=== PATIENT | male | born 1960 | race Caucasian/White ===

== ENCOUNTER 2018-07-17 05:29 | Outpatient (CLI) | payer BC | END 2018-07-17 05:30 | disposition home or self-care (01) | LOC: LABBT 05:29 | PROVIDERS: ATTEND Neurological Surgery | DX: Z01.818 Encounter for other preprocedural examination (principal); M54.16 Radiculopathy, lumbar region | CPT/HCPCS: 93005; 93010 ==

== ENCOUNTER 2018-07-17 09:14 | Emergency (ER) | payer BC ==
[2018-07-17] MEDS ORDERED: Metoprolol Tartrate 5 MG/5 ML VIAL ONE (09:40)
[2018-07-17 09:45] LABS: #Eosinphils 0.5 thou/uL (0.0-0.7); #Lymphocytes 2.5 thou/uL (1.20-3.40); #Monocytes 0.6 thou/uL (0.11-0.59); #Neutrophils 3.2 thou/uL (1.40-6.50); %Basophils 0.7 % (0.0-1.0); %Eosinophils 7.3 % (0.0-10.0); %Lymphocytes 36.5 % (21.0-51.0); %Monocytes 8.4 % (0.0-10.0); %Neutrophils 47.1 % (42.0-75.0); Hemoglobin 15.4 g/dL (14.0-18.0); Mean Corpuscular HGB CONC 32.4 g/dL (32.0-36.0); Mean Corpuscular Hemoglobin 27.6 pg (27.0-31.0); Mean Corpuscular Volume 84.9 fL (78.0-98.0); Mean Platelet Volume 7.9 fL (7.4-10.4); Platelet Count 217 thou/uL (130-400); RBC Distribution Width 12.3 % (11.5-14.5); Red Blood Cell (RBC) Count 5.59 mill/uL (4.70-6.10); White Blood Cell (WBC) Count 6.9 thou/uL (4.8-10.8)
--- NOTE | 2018-07-17 10:08 | RAD ---
Chest one view HISTORY: Abnormal EKG. COMPARISON: 11/27/2009. FINDINGS: Cardiac silhouette is magnified by projection. Pulmonary vasculature is upper limits of nor mal. Mediastinum is midline. No lobar consolidation or evidence of pneumothorax. monitor worker leads overlie the chest. IMPRESSION: No active cardiopulmonary abnormalities are demonstrated..
[2018-07-17 11:49] LABS: ALT (SGPT) 24 U/L (8-55); AST (SGOT) 17 U/L (5-34); Albumin 4.6 g/dL (3.5-5.0); Alkaline Phosphatase 77 U/L (40-150); Anion Gap 13 mmol/L (10-20); BUN (Urea Nitrogen) 20 mg/dL (8.4-25.7); Bilirubin, Total 0.5 mg/dL (0.2-1.2); CK (CPK) 178 U/L (30-200); Calc. Creatinine Clearance 0 mL/min (70-130); Calcium 9.5 mg/dL (7.8-10.44); Carbon Dioxide 26 mmol/L (22-29); Chloride 103 mmol/L (98-107); Estimated GFR-MDRD 68; Globulin 2.6 g/dL (2.4-3.5); Glucose 111 mg/dL (70-105); Lipase 28 U/L (8-78); Potassium 4.2 mmol/L (3.5-5.1); Protein, Total 7.2 g/dL (6.0-8.3); Sodium 138 mmol/L (136-145)
== END 2018-07-17 13:20 | disposition home or self-care (01) ==
LOC: ERS 09:14
DX: I48.92 Unspecified atrial flutter (principal); I10 Essential (primary) hypertension
CPT/HCPCS: 71045; 80053; 82550; 83690; 84484; 85025; 93005; 93010; 96361; 96374

== ENCOUNTER 2018-07-25 06:01 | Outpatient (CLI) | payer BC ==
[2018-07-25 11:55] LABS: Hemoglobin 15.6 g/dL (14.0-18.0); INR-International Normal Ratio 2.1; Mean Corpuscular HGB CONC 33.8 g/dL (32.0-36.0); Mean Corpuscular Hemoglobin 28.5 pg (27.0-31.0); Mean Corpuscular Volume 84.2 fL (78.0-98.0); Mean Platelet Volume 7.5 fL (7.4-10.4); PTT 40.6 SEC (22.9-36.1); Platelet Count 265 thou/uL (130-400); Prothrombin Time 23.4 SEC (12.0-14.7); RBC Distribution Width 12.2 % (11.5-14.5); White Blood Cell (WBC) Count 9.1 thou/uL (4.8-10.8)
[2018-07-25 12:32] LABS: Anion Gap 16 mmol/L (10-20); BUN (Urea Nitrogen) 19 mg/dL (8.4-25.7); Calc. Creatinine Clearance 0 mL/min (70-130); Calcium 9.7 mg/dL (7.8-10.44); Carbon Dioxide 26 mmol/L (22-29); Chloride 102 mmol/L (98-107); Estimated GFR-MDRD 73; Glucose 113 mg/dL (70-105); Potassium 4.1 mmol/L (3.5-5.1); Sodium 140 mmol/L (136-145)
--- NOTE | 2018-07-25 16:59 | EKG ---
Test Reason : Blood Pressure : / mmHG Vent. Rate : 098 BPM Atrial Rate : 256 BPM P-R Int : 000 ms QRS Dur : 108 ms QT Int : 424 ms P-R-T Axes : -50 -38 019 degrees QTc Int : 541 ms Atrial flutter with variable A-V block Left axis deviation Incomplete right bundle branch block Lateral infarct , age undetermined cannot R/O some acute inferior changes Prolonged QT Abnormal ECG Confirmed by DR. Enio SIFUENTES ([id number]) on 07/25/2018 4:58:47 PM Referred By: IRENE Confirmed By:DR. Enio SIFUENTES
== END 2018-07-25 06:02 | disposition home or self-care (01) ==
LOC: LABBT 06:01
PROVIDERS: ATTEND Internal Medicine Cardiovascular Disease
DX: Z01.818 Encounter for other preprocedural examination (principal); I48.92 Unspecified atrial flutter
CPT/HCPCS: 80048; 85027; 85610; 85730; 93005; 93010

== ENCOUNTER 2018-07-26 08:09 | Day surgery (SDC) | payer BC ==
[2018-07-25 11:44] VITALS: BMI 38.1
[2018-07-26] MEDS ORDERED: PROPOFOL 0 ML ONE (09:13)
[2018-07-26] MEDS ORDERED: Propofol 1,000 MG/100 ML VIAL IV ONE (10:04)
[2018-07-26] MEDS ORDERED: Heparin 10,000 UNITS/1 ML VIAL ONE (10:04)
[2018-07-26] MEDS ORDERED: PROPOFOL 40 ML ONE (11:04)
[2018-07-26] MEDS ORDERED: Lidocaine 1% PF 5 ML VIAL ONE (11:04)
[2018-07-26] MEDS ORDERED: Fentanyl 100 MCG/2 ML VIAL ONE (11:28)
[2018-07-26] MEDS ORDERED: Midazolam HCl 2 mg/2 ml Vial ONE (11:28)
[2018-07-26] MEDS ORDERED: DOPamine 400 MG/D5W 250 ML 250 ML ONE (12:30)
[2018-07-26] MEDS ORDERED: PROPOFOL 200 MG/20 ML VIAL ONE (13:36)
--- NOTE | 2018-07-26 15:38 | OP ---
DATE OF PROCEDURE: 07/26/2018 PROCEDURES PERFORMED: Electrophysiology study and radiofrequency ablation. REASON FOR PROCEDURE: Mr. Todd is a 57-year-old man, who was found to be sustained atrial flutter, increasing fatigue and tiredness, who underwent a NAT prior to the procedure demonstrating no intracardiac clots. Left atrial size is 6.2 cm. Normal LV function. He has been anticoagulated with Xarelto, which was stopped the day before. He is here for EP study and ablation of his typical appearing atrial flutter. DESCRIPTION OF PROCEDURE: The patient received the propofol by Anesthesia specialist. After adequate level of sedation achieved, the left and right femoral vein was prepped, draped and anesthetized using subcutaneous lidocaine in the right side under ultrasound guidance with a multipurpose needle. Two 8-Hungarian short sheaths were introduced. Through the 8-Hungarian short sheath, a ThermoCool SFST catheter was advanced to the right atrium. A 3D map of the right atrium, the His bundle and the coronary sinus was obtained. A decapolar catheter was advanced to the coronary sinus. Following findings were noted. Baseline rhythm was atrial flutter. RR interval was 718. The QRS 74, QT 354, and HV interval 52 milliseconds. Atrial flutter cycle length was 270 milliseconds. It appeared to be typical. Overdrive pacing at the isthmus entering the tachycardia and the post pacing interval equaling to the tachycardia cycle length about 270 milliseconds. At this point, the cavotricuspid isthmus ablation was performed, delivering a total of 8 lesions at 8 minutes and 17 seconds at 40 armijo. During the ablation, the atrial flutter terminated. Re-mapping of the cavotricuspid isthmus was performed during proximal CS pacing and we were able to achieve over 200 milliseconds transisthmus time, which was longest adjacent by the ablation line suggesting of cavotricuspid isthmus block at least unilaterally. Burst atrial pacing did not reinduce the atrial flutter. Following findings were noted in sinus rhythm. Sinus node recovery time was 1359, corrected 561. The AV Wenckebach cycle length was 380. AV brett ERP was 600/300 milliseconds. No evidence of dual AV brett physiology was seen. Again, burst atrial pacing was repeated on dopamine and also the patency of the ablation line was also rechecked. In the end of the case, the cardiac silhouette did not change significantly. Sheaths were pulled in the metallurgy laboratory technician and closure was achieved with Vascade closure. CONCLUSION: 1. Typical isthmus dependent atrial flutter. 2. Successful cavotricuspid isthmus ablation. 3. Successful Vascade closure. 4. Abnormal sinus brett function. 5. Normal AV brett function without evidence of accessory pathway. Normal His-Purkinje function also seen. PLAN: Continue Xarelto short-term and monitor for recurrent arrhythmias. Routine followup in the office. Job ID: [id number]
--- NOTE | 2018-07-26 17:43 | ECHO ---
DATE OF SERVICE: 07/26/18 REFERRING PHYSICIAN: Dr. Micki Riley REASON FOR PROCEDURE: The patient is a 57-year-old male with prior history of hypertension who has had been found to have a typical atrial flutter while undergoing workup for a slipped disc for possible back surgery. He has s ignificant tiredness. Here for NAT prior to planned ablation procedure. PROCEDURE: The patient received Propofol by Anesthesia specialist. After adequate level of sedation achieved, a standard transesophageal echocardiogram probe was passed into the esophagus without diff iculty. Patient tolerated the procedure well, no complications noted. RESULTS: Left atrium is moderately enlarged in size about 6.2 cm in horizontal diameter which may be appropria te for this body habitus. The right atrium is enlarged. The interatrial septum is free of defect. Tw o left sided pulmonary veins and three right sided pulmonary veins were visualized. The mitral valve has mild regurgitation. The aortic valve has trace regurgitation. Tricuspid valve has mild regurgit ation. The pulmonary valve has trace regurgitation. No valvular stenosis identified. Left ventricula r systolic function is preserved. Ventricular chamber sizes are normal. No ventricular septal defects or atrial septal defects observed. Pericardial space is free of effusion. The visualized portion of ascending and descending aorta without aneurysm, dissection or significant atheroma. Left atrial appendage is clearly visualized and contains no clots. Left atrial appendage velocities u p to 55 cm/s which is adequate. CONCLUSION: 1. No intracardiac clots. 2. Normal left ventricular systolic function seen. 3. Moderate left atrial enlargement. 4. Mild mitral and tricuspid regurgitation. No valvular stenosis identified. PLAN: Proceed with ablation procedure.
== END 2018-07-26 17:10 | disposition home or self-care (01) ==
LOC: CCL 08:09
PROVIDERS: ATTEND Internal Medicine Cardiovascular Disease
PROC: 02583ZZ Destruction of Conduction Mechanism, Percutaneous Approach (ICD-10-PCS; principal; 2018-07-26)
DX: I48.3 Typical atrial flutter (principal); I10 Essential (primary) hypertension; I08.1 Rheumatic disorders of both mitral and tricuspid valves; Z79.899 Other long term (current) drug therapy
CPT/HCPCS: 76942; 93005; 93312; 93613; 93623; 93653; C1732; C1769; J1265; J1644; J2001; J2250; J2704; J3010

== ENCOUNTER 2018-10-16 07:41 | Day surgery (SDC) | payer BC ==
[2018-10-13 12:36] VITALS: BMI 39.5
--- NOTE | 2018-10-15 22:16 | HP ---
HISTORY OF PRESENT ILLNESS: Mr. Todd is a pleasant 57-year-old man, here today for evaluation of lower back pain and left-sided hip and anterior thigh and garnica pain that began after moving a large load at work back in May. He has never had this type of pain in the past. The pain is worsened with prolonged driving and sitting. MRI from the [facility] reveals moderate to severe foraminal stenosis at L3-L4 and L4-L5 . He has not treated this with using other than [id number] medications. He denies weakness, but admits he walks and moves a lot more slowly than previous to this pain. PAST MEDICAL HISTORY: Significant for hypercholesterolemia and hypertension. PAST SURGICAL HISTORY: Right knee, unspecified. CURRENT MEDICATIONS: Amitriptyline. ALLERGIES: NO KNOWN DRUG ALLERGIES. PHYSICAL EXAMINATION: GENERAL: The patient is alert, oriented x3. MUSCULOSKELETAL: Gait is slowed and antalgic. Lower extremity motor exam is normal. ASSESSMENT: Lumbar radiculopathy. PLAN: Dr. Genao met with the patient, reviewed imaging, advocated for left L3-L5 decompression. He explained to the patient the risks, benefits, and alternatives to the procedure. The patient expressed understanding and elected to move forward with surgery as discussed. I do believe the patient is mentally competent and capable of making medical decisions for himself. We will move forward with surgery as planned. Job ID: [id number]
[2018-10-16] MEDS ORDERED: ceFAZolin Sodium (SDC) 2 GM/100 ML BAG ONE ×2 (09:19→14:11)
[2018-10-16 09:30] LABS: #Eosinphils 0.5 thou/uL (0.0-0.7); #Monocytes 0.6 thou/uL (0.11-0.59); #Neutrophils 3.5 thou/uL (1.40-6.50); %Basophils 0.5 % (0.0-1.0); %Eosinophils 7.2 % (0.0-10.0); %Lymphocytes 30.1 % (21.0-51.0); %Monocytes 9.4 % (0.0-10.0); %Neutrophils 52.8 % (42.0-75.0); Hemoglobin 14.6 g/dL (14.0-18.0); Mean Corpuscular HGB CONC 32.7 g/dL (32.0-36.0); Mean Corpuscular Hemoglobin 28.3 pg (27.0-31.0); Mean Corpuscular Volume 86.6 fL (78.0-98.0); Platelet Count 216 thou/uL (130-400); RBC Distribution Width 13.3 % (11.5-14.5); Red Blood Cell (RBC) Count 5.18 mill/uL (4.70-6.10); White Blood Cell (WBC) Count 6.6 thou/uL (4.8-10.8)
[2018-10-16 09:37] LABS: Anion Gap 10 mmol/L (10-20); BUN (Urea Nitrogen) 22 mg/dL (8.4-25.7); Calc. Creatinine Clearance 180 mL/min (70-130); Calcium 9.9 mg/dL (7.8-10.44); Carbon Dioxide 32 mmol/L (22-29); Chloride 108 mmol/L (98-107); Estimated GFR-MDRD 72; Glucose 118 mg/dL (70-105); Potassium 4.1 mmol/L (3.5-5.1); Sodium 146 mmol/L (136-145)
[2018-10-16] MEDS ORDERED: Bupivacaine HCl 0.5%/Epinephrine 1:200,000/PF 30 ml Vial ONE (10:19)
[2018-10-16] MEDS ORDERED: Thrombin 5000 UNITS/5 ML VIAL ONE (10:19)
[2018-10-16] MEDS ORDERED: Fentanyl 250 MCG/5 ML VIAL ONE (10:24)
[2018-10-16] MEDS ORDERED: Midazolam HCl 2 mg/2 ml Vial ONE (10:24)
[2018-10-16] MEDS ORDERED: Tamsulosin HCl 0.4 MG CAP ONE (12:29)
[2018-10-16] MEDS ORDERED: Fentanyl 100 MCG/2 ML VIAL ONE (12:35)
[2018-10-16] MEDS ORDERED: Acetaminophen/Codeine 30-300mg Tablet ONE (14:14)
--- NOTE | 2018-10-16 16:07 | OP ---
DATE OF PROCEDURE: 10/16/2018 [employer] FOOTBALLER: Alexi Ponce PA-C. INDICATION: Pain. DIAGNOSIS: Lumbar radiculopathy. PROCEDURES PERFORMED: Left L3-L4, L4-L5 lumbar decompression, hemilaminectomy, medial facetectomy, and foraminotomy. ANESTHESIA: General. DESCRIPTION OF PROCEDURE: The patient was brought into the operating room and placed under general anesthesia. He was flipped from the supine to prone position on operating room table. A linear incision was planned from L3 to L5. The lower aspect of the incision encompassed incision from his prior operation. After prepping and draping and after an appropriate pause, the incision was created. The soft tissues were swept left of midline. A self-retaining retractor was placed. A C-arm image was then obtained to confirm the appropriate level. After confirming the appropriate level, high-speed cutting drill bit was used to perform a laminectomy completely along L4, the inferior aspect of L3, and the superior aspect of L5 was already missing from a prior operation. The laminectomy was extended laterally to encompass the medial aspect of the facet joints at both levels. The descending L4 and exiting L4 nerve root in particular were identified and decompressed throughout its course as most the patient's if not all of the symptoms were consistent with an L4 radiculopathy. After decompressing the segments, the wound was irrigated. Hemostasis was maintained throughout. The wound was then closed in anatomic layers and a pressure dressing was applied. There were no known procedural complications. Job ID: [id number]
== END 2018-10-16 14:56 | disposition home or self-care (01) ==
LOC: SDC 07:41
PROVIDERS: ATTEND Neurological Surgery
PROC: 01NB0ZZ Release Lumbar Nerve, Open Approach (ICD-10-PCS; principal; 2018-10-16)
DX: M54.16 Radiculopathy, lumbar region (principal); I10 Essential (primary) hypertension; E78.00 Pure hypercholesterolemia, unspecified; Z79.899 Other long term (current) drug therapy; R26.89 Other abnormalities of gait and mobility
CPT/HCPCS: 36415; 76000; 80048; 85025; J0670; J0690; J2250; J3010

== ENCOUNTER 2019-01-11 06:43 | Outpatient (CLI) | payer BC ==
[2019-01-11 13:39] LABS: #Basophils 0.1 thou/uL (0.0-0.2); #Eosinphils 0.4 thou/uL (0.0-0.7); #Lymphocytes 1.8 thou/uL (1.20-3.40); #Monocytes 0.6 thou/uL (0.11-0.59); #Neutrophils 4.6 thou/uL (1.40-6.50); %Basophils 0.8 % (0.0-1.0); %Eosinophils 5.2 % (0.0-10.0); %Lymphocytes 24.7 % (21.0-51.0); %Monocytes 7.4 % (0.0-10.0); %Neutrophils 61.9 % (42.0-75.0); Hemoglobin 15.4 g/dL (14.0-18.0); Mean Corpuscular HGB CONC 34.6 g/dL (32.0-36.0); Mean Corpuscular Hemoglobin 29.5 pg (27.0-31.0); Mean Corpuscular Volume 85.1 fL (78.0-98.0); Mean Platelet Volume 7.2 fL (7.4-10.4); Platelet Count 235 thou/uL (130-400); RBC Distribution Width 12.2 % (11.5-14.5); Red Blood Cell (RBC) Count 5.22 mill/uL (4.70-6.10); White Blood Cell (WBC) Count 7.4 thou/uL (4.8-10.8)
[2019-01-11 13:48] LABS: Bacteria/HPF None Seen HPF (None Seen); Bilirubin Negative (Negative); Blood, Urine Negative (Negative); Clarity Clear (Clear); Glucose, Urine (Dipstick) Normal (Negative); Leukocyte Negative Leu/uL (Negative); Nitrite Negative (Negative); Protein, Urine (Dipstick) Negative (Neg-Trace); RBC/HPF 0-3 HPF (0-3); Squamous Epithelial None Seen HPF (0-3); Urobilinogen Normal mg/dL (Less than 2); WBC/HPF 0-3 HPF (0-3)
[2019-01-11 13:52] LABS: INR-International Normal Ratio 1.1; Prothrombin Time 13.7 SEC (12.0-14.7)
[2019-01-11 13:58] LABS: Anion Gap 14 mmol/L (10-20); BUN (Urea Nitrogen) 16 mg/dL (8.4-25.7); Calc. Creatinine Clearance 0 mL/min (70-130); Calcium 9.4 mg/dL (7.8-10.44); Carbon Dioxide 25 mmol/L (22-29); Chloride 103 mmol/L (98-107); Estimated GFR-MDRD 69; Glucose 105 mg/dL (70-105); Potassium 3.4 mmol/L (3.5-5.1); Sodium 139 mmol/L (136-145)
--- NOTE | 2019-01-11 16:55 | EKG ---
Test Reason : Blood Pressure : / mmHG Vent. Rate : 075 BPM Atrial Rate : 075 BPM P-R Int : 204 ms QRS Dur : 106 ms QT Int : 416 ms P-R-T Axes : 082 036 058 degrees QTc Int : 464 ms Sinus rhythm with Premature atrial complexes Incomplete right bundle branch block Possible Inferior infarct Abnormal ECG Confirmed by RORO SAEED ([id number]) on 01/11/2019 4:55:04 PM Referred By: IERO Confirmed By:RORO SAEED
== END 2019-01-11 06:44 | disposition home or self-care (01) ==
LOC: LABBT 06:43
PROVIDERS: ATTEND Orthopaedic Surgery
DX: Z01.818 Encounter for other preprocedural examination (principal); M17.12 Unilateral primary osteoarthritis, left knee
CPT/HCPCS: 80048; 81001; 85025; 85610; 87081; 93005; 93010

== ENCOUNTER 2019-01-11 12:30 | Inpatient (IN) | payer BC ==
[2019-01-22] MEDS ORDERED: Tranexamic Acid 1,000 MG/10 ML VIAL ONE ×2 (06:00→09:32)
[2019-01-22] MEDS ORDERED: Sodium Chloride 0.9% 100 ML ONE (06:00)
[2019-01-22] MEDS ORDERED: Fentanyl 100 MCG/2 ML VIAL ONE ×4 (06:36→10:33)
[2019-01-22] MEDS ORDERED: Midazolam HCl 2 mg/2 ml Vial ONE (06:36)
[2019-01-22] MEDS ORDERED: Bupivacaine PF 0.5% 30 ML VIAL ONE (06:46)
[2019-01-22] MEDS ORDERED: Ropivacaine HCl/PF 250 ML in Premix Bag 1 BAG NERVE BLCK SCH (07:19)
[2019-01-22] MEDS ORDERED: traMADol HCl 50 MG TAB PO PRN ×3 (07:19)
[2019-01-22] MEDS ORDERED: diphenhydrAMINE 25 MG CAP PO PRN (07:19)
[2019-01-22] MEDS ORDERED: Zolpidem Tartrate 5 MG TAB PO PRN ×2 (07:19)
[2019-01-22] MEDS ORDERED: Ondansetron PF 4 MG/2 ML Vial IVP PRN ×2 (07:19)
[2019-01-22] MEDS ORDERED: HYDROcodone/Acetaminophen 10/325 mg Tablet PO PRN ×4 (07:19)
[2019-01-22] MEDS ORDERED: Promethazine HCl 25 MG/ML VIAL IM PRN ×3 (07:19→08:08)
[2019-01-22] MEDS ORDERED: Fentanyl 100 MCG/2 ML VIAL SLOW IVP PRN (07:19)
[2019-01-22] MEDS ORDERED: Fentanyl 100 MCG/2 ML VIAL IV PRN (07:20)
[2019-01-22] MEDS ORDERED: Tranexamic Acid 1,000 MG in Sodium Chloride 0.9% 100 ML IVPB SCH (07:30)
[2019-01-22] MEDS ORDERED: Ondansetron HCl/PF 4 MG/2 ML Vial IVP PRN (08:08)
[2019-01-22] MEDS ORDERED: Promethazine HCl 25 MG/ML VIAL SLOW IVP PRN (08:08)
[2019-01-22] MEDS ORDERED: Aspirin 81 mg Enteric Coated Tablet PO SCH (09:00)
[2019-01-22] MEDS ORDERED: PROPOFOL 200 MG/20 ML VIAL ONE (10:27)
[2019-01-22] MEDS ORDERED: Ondansetron PF 4 MG/2 ML Vial ONE (10:27)
[2019-01-22] MEDS ORDERED: Lidocaine 1% PF 5 ML VIAL ONE (10:27)
[2019-01-22] MEDS ORDERED: Ketorolac Tromethamine 30 MG/ML VIAL ONE (10:40)
[2019-01-22] MEDS ORDERED: Acetaminophen 1,000 MG in Premix Bag 1 BAG IVPB SCH (10:45)
[2019-01-22] MEDS ORDERED: Ketorolac Tromethamine 30 MG/ML VIAL IVP SCH ×2 (10:45→14:00)
[2019-01-22 11:55] VITALS: BMI 41.6
[2019-01-22] MEDS: Aspirin 81 mg Enteric Coated Tablet PO SCH ×2 (12:00→21:05)
[2019-01-22] MEDS: Sodium Chloride 0.9% 1,000 ML IV SCH ×2 (12:00→17:45)
[2019-01-22] MEDS: Hydrochlorothiazide 25 MG TAB PO SCH (12:00)
[2019-01-22] MEDS: Amlodipine 10 MG TAB PO SCH (12:00)
[2019-01-22] MEDS ORDERED: Acetaminophen 650 MG Suppository PR PRN (12:33)
[2019-01-22] MEDS: Ketorolac Tromethamine 30 MG/ML VIAL IVP SCH ×3 (12:55→23:14)
[2019-01-22] MEDS ORDERED: Ropivacaine 0.2% HCl/PF (40 MG/20 ML VIAL) ONE (13:26)
[2019-01-22] MEDS ORDERED: Bupivacaine HCl 0.5%/Epinephrine 1:200,000/PF 30 ml Vial ONE (13:26)
[2019-01-22 13:38] LABS: #Eosinphils 0.1 thou/uL (0.0-0.7); #Lymphocytes 1.1 thou/uL (1.20-3.40); #Monocytes 0.7 thou/uL (0.11-0.59); #Neutrophils 11.3 thou/uL (1.40-6.50); %Basophils 0.2 % (0.0-1.0); %Eosinophils 0.6 % (0.0-10.0); %Lymphocytes 8.2 % (21.0-51.0); %Monocytes 5.5 % (0.0-10.0); %Neutrophils 85.5 % (42.0-75.0); Hemoglobin 14.2 g/dL (14.0-18.0); Mean Corpuscular HGB CONC 33.5 g/dL (32.0-36.0); Mean Corpuscular Hemoglobin 28.9 pg (27.0-31.0); Mean Corpuscular Volume 86.1 fL (78.0-98.0); Mean Platelet Volume 6.9 fL (7.4-10.4); Platelet Count 229 thou/uL (130-400); RBC Distribution Width 12.1 % (11.5-14.5); Red Blood Cell (RBC) Count 4.91 mill/uL (4.70-6.10); White Blood Cell (WBC) Count 13.2 thou/uL (4.8-10.8)
[2019-01-22 14:02] LABS: ALT (SGPT) 26 U/L (8-55); AST (SGOT) 19 U/L (5-34); Albumin 4.4 g/dL (3.5-5.0); Alkaline Phosphatase 71 U/L (40-110); Anion Gap 12 mmol/L (10-20); BUN (Urea Nitrogen) 16 mg/dL (8.4-25.7); Bilirubin, Total 0.6 mg/dL (0.2-1.2); Calc. Creatinine Clearance 173 mL/min (70-130); Calcium 8.9 mg/dL (7.8-10.44); Carbon Dioxide 30 mmol/L (22-29); Chloride 100 mmol/L (98-107); Estimated GFR-MDRD 67; Globulin 2.6 g/dL (2.4-3.5); Glucose 117 mg/dL (70-105); Potassium 3.7 mmol/L (3.5-5.1); Sodium 138 mmol/L (136-145)
--- NOTE | 2019-01-22 14:47 | CON ---
DATE OF CONSULTATION: 01/22/2019 PRIMARY CARE PHYSICIAN: Dr. Monserrat Cannon. REASON FOR CONSULTATION: Medical management. HISTORY OF PRESENT ILLNESS: Mr. Todd is a pleasant 58-year-old gentleman who is status post left total knee replacement, who has been referred for medical management and has a past medical history of hypertension and hyperlipidemia. The patient states he is feeling well at this present time and states his pain is very much under control. He has tolerated fluid intake and is waiting for his meal to arrive. Currently denies having any nausea. Has not experienced any vomiting. Denies any fevers, chills, or sweats. Denies any chest pain, palpitations, or shortness of breath. No abdominal pain or cramping. No urinary symptoms. Overall, he is feeling well and resting comfortably in bed. All other review of systems are negative. PAST MEDICAL HISTORY: 1. Hyperlipidemia. 2. Hypertension. 3. Obesity. 4. Former smoker. 5. Daily alcohol intake, drinks one glass of Coke and whiskey a day. PAST SURGICAL HISTORY: 1. Status post total left knee replacement. 2. Status post ablation for atrial fibrillation in July 2018. 3. Left L3-L5 decompression. 4. Right knee arthroscopy. 5. IH repair with mesh x2. 6. Tonsillectomy. 7. Left lumbar three through five decompression. 8. Removal of loose body in June [address] casillas. SOCIAL HISTORY: The patient is fully independent. Lives with his family. He previously smoked cigarettes, but quit 3 years ago. Drinks daily alcohol, total of one glass of Coke and whiskey a day, but quit last January 18 in preparation for surgery. Denies any alcohol withdrawal symptoms or seizures. ALLERGIES: NO KNOWN DRUG ALLERGIES. CURRENT MEDICATIONS: 1. Amlodipine. 2. Aspirin. 3. HCTZ. 4. Advil PM. 5. Melatonin. 6. Metoprolol succinate. PHYSICAL EXAMINATION: GENERAL: The patient appears well developed, well nourished, is in no acute distress. VITAL SIGNS: Temperature 97.9, pulse 68, respirations 18, O2 saturation 93% on room air, blood pressure 131/83. HEENT: Normocephalic and atraumatic. Pupils are equal, round, and reactive to light. Sclerae without icterus. Oropharynx is clear. NECK: Supple without lymphadenopathy. LUNGS: Clear to auscultation bilaterally without any wheezes, rales, or rhonchi. CARDIAC: Regular rate and rhythm without audible murmurs, rubs, or gallops. ABDOMEN: Soft, obese, nontender, nondistended. Normoactive bowel sounds present. No guarding or rigidity. No renal angle tenderness. EXTREMITIES: Notable for mechanical SCDs in place with dressing applied to the left leg where he had surgery today. Right leg without any edema or swelling. Pedal pulses strong and equal bilaterally. NEUROLOGIC: Alert and oriented x3. No neuro deficits on exam. SKIN: Normal. Warm and dry. DIAGNOSTIC STUDIES: EKG showed normal sinus rhythm with a rate of 75 with PACs and an incomplete right bundle-branch block. This is similar to EKG done previously. LABORATORY STUDIES: January 11, 2019 showed a normal full blood count. Potassium was slightly low at 3.4, BUN 16, GFR 76, creatinine 1.11, GFR 69. IMPRESSION AND PLAN: Mr. Todd is a pleasant 58-year-old gentleman who is status post left knee replacement, who has been referred for management of the followin. Hypertension. The patient states his blood pressure is normally well controlled and it is normal at 125/76, pressure is when at bedside. We will continue to monitor. We will continue home medications. We will obtain laboratory studies including CBC and CMP. 2. Hyperlipidemia. The patient is not on any statins. We will change regular diet to a heart healthy diet. He states he does plan to follow up with his primary care physician for routine visits as he has been doing and knows that he has gained weight as of recently. He is on a baby aspirin. 3. Gastrointestinal prophylaxis famotidine 20 mg b.i.d. 4. Deep venous thrombosis prophylaxis. Continue mechanical sequential compression devices. 5. Code status full. His surrogate decision maker is his daughter, Adriana Todd. The patient's case discussed with attending who agrees with plan of care as described above. Thank you for this consultation. We will continue to follow this patient with you. Job ID: [id number]
--- NOTE | 2019-01-22 15:03 | OP ---
DATE OF PROCEDURE: 01/22/2019 PREOPERATIVE DIAGNOSES: Left knee osteoarthrosis. POSTOPERATIVE DIAGNOSIS: Left knee osteoarthrosis. PROCEDURES PERFORMED: Left total knee replacement using [employer] pinless navigation. AUTO MOTOR MECHANIC: Gray Bonilla. ESTIMATED BLOOD LOSS: Minimal. COMPLICATIONS: None. ANESTHESIA: He had a general anesthetic. He also had a preoperative block. IMPLANTS: To the left knee, [place] [employer] total knee system. We used a size 7 cruciate retaining femur. We used a size 6 primary tibial base plate. We used a 6 x 9 mm CS X3 tibial bearing and a 32 x 10 asymmetric X3 patella. DISPOSITION: He did go to recovery room in stable condition. INDICATIONS: A 58-year-old male, who has failed nonoperative treatment for knee arthritis and at this time wished to have the knee replaced. PROCEDURE IN DETAIL: After all appropriate consent forms were explained and signed, the patient was taken back to the operating room and at this time was given general anesthetic. Once the level of anesthesia was appropriate, a well-padded tourniquet was placed on the left leg, and the leg was then prepped and draped in standard surgical fashion. The limb was exsanguinated and tourniquet taken up to 300 mmHg. Midline incision was made with a 10 blade down through the skin and subcutaneous tissue. Bovie electrocautery was used to coagulate any brisk venous bleeding. A new blade was used to make a medial parapatellar arthrotomy. Small subperiosteal release was performed medially and excess fat pad was removed. The knee was flexed up to gain access to the femur. The femur was navigated and distal femoral resection was made. Epicondylar access was used to align our sizing jig and this was pinned in place. We sized our femur to be a 7. 4:1 cutting block was applied and pinned. Anterior and posterior chamfer cuts were then made. We navigated out our proximal tibia and made our proximal tibial resection. Spreaders were used to remove any posterior osteophytes off the back of the femur as well as remaining meniscal tissue. A long alignment mykel was then used to achieve correct rotation of our tibial baseplate and a size 6 was chosen. This was pinned in place. We trialed the polyethylene and a 6 x 9 mm CS X3 tibial bearing polyethylene gave us full extension and good stability throughout range of motion. Two towel clips and a saw were used to cut our patella. Three lug nuts were drilled and 32 x 10 asymmetric X3 patella was trialed which sat nicely in the trochlear groove. We then drilled our femur and punched our tibia. All components were removed. The knee was thoroughly irrigated and dried. Cement was mixed into the cement gun on the back table. Components were then placed. The knee was held out in full extension until the cement had dried. All excess bone cement was removed. Multiple #2 Vicryl stitches as well as a Quill were used to close our extensor mechanism. 0 Quill followed by a running Monoderm was then used to close the skin. Surgicel glue was then used on the skin. Once this had dried, soft tissue dressing was applied to the limb, tourniquet was let down, and the toes pinked up nicely. The patient was then awakened and taken to the recovery room in stable condition. All counts were correct at the end of the case. The patient did receive preoperative IV antibiotics. The patient was injected with Marcaine for postoperative pain relief. Job ID: [id number] [facility]
[2019-01-22] MEDS: CEFAZOLIN 2 GM in Premix Bag 1 BAG IVPB SCH ×2 (15:38→23:14)
[2019-01-22] MEDS: Famotidine/PF 20 mg/2ml Vial SLOW IVP SCH (21:05)
[2019-01-22] MEDS: Melatonin 3 MG TAB PO PRN (21:06)
[2019-01-22] MEDS: Acetaminophen 325 MG TAB PO PRN (23:28)
[2019-01-23] MEDS: Sodium Chloride 0.9% 1,000 ML IV SCH ×2 (03:30→13:21)
[2019-01-23 05:16] LABS: #Eosinphils 0.4 thou/uL (0.0-0.7); #Lymphocytes 1.5 thou/uL (1.20-3.40); #Monocytes 0.8 thou/uL (0.11-0.59); #Neutrophils 5.5 thou/uL (1.40-6.50); %Basophils 0.3 % (0.0-1.0); %Eosinophils 4.6 % (0.0-10.0); %Lymphocytes 18.4 % (21.0-51.0); %Monocytes 9.4 % (0.0-10.0); %Neutrophils 67.3 % (42.0-75.0); Hemoglobin 12.9 g/dL (14.0-18.0); Mean Corpuscular HGB CONC 32.7 g/dL (32.0-36.0); Mean Corpuscular Hemoglobin 28.4 pg (27.0-31.0); Mean Platelet Volume 7.3 fL (7.4-10.4); Platelet Count 204 thou/uL (130-400); RBC Distribution Width 12.1 % (11.5-14.5); Red Blood Cell (RBC) Count 4.52 mill/uL (4.70-6.10); White Blood Cell (WBC) Count 8.2 thou/uL (4.8-10.8)
[2019-01-23 05:25] LABS: Anion Gap 10 mmol/L (10-20); BUN (Urea Nitrogen) 15 mg/dL (8.4-25.7); Calc. Creatinine Clearance 173 mL/min (70-130); Calcium 8.2 mg/dL (7.8-10.44); Carbon Dioxide 29 mmol/L (22-29); Chloride 104 mmol/L (98-107); Estimated GFR-MDRD 67; Glucose 111 mg/dL (70-105); Potassium 3.7 mmol/L (3.5-5.1); Sodium 139 mmol/L (136-145)
[2019-01-23] MEDS: Ketorolac Tromethamine 30 MG/ML VIAL IVP SCH ×4 (06:02→23:11)
[2019-01-23] MEDS ORDERED: FLU VACC QS2019-20(6MOS UP)/PF 60 MCG/0.5 ML SYRINGE IM ONE (09:00)
[2019-01-23] MEDS: Famotidine/PF 20 mg/2ml Vial SLOW IVP SCH ×2 (09:26→20:32)
[2019-01-23] MEDS: Amlodipine 10 MG TAB PO SCH (09:26)
[2019-01-23] MEDS: Senokot S 8.6-50 MG TAB PO SCH ×2 (09:27→20:32)
[2019-01-23] MEDS: Multivitamin W/ Minerals 1 TAB PO SCH (09:27)
[2019-01-23] MEDS: Aspirin 81 mg Enteric Coated Tablet PO SCH ×2 (09:28→20:32)
[2019-01-23] MEDS: Hydrochlorothiazide 25 MG TAB PO SCH (09:28)
[2019-01-23] MEDS: Ferrous Gluconate 324 MG TAB PO SCH ×2 (09:28→20:32)
--- NOTE | 2019-01-23 09:42 | PRG ---
DATE OF SERVICE: 01/23/2019 SUBJECTIVE: Rafal is a 58-year-old male who is postop day 1 from a left total knee arthroplasty. He is doing relatively well. He ambulated 120 feet yesterday. His pain is relatively well controlled. OBJECTIVE: VITAL SIGNS: Temperature 97.9, pulse 74, respiratory rate 18 and nonlabored, O2 saturations 92% to 96% on room air, blood pressure is 117/73. GENERAL: He is alert and oriented to person, place, time, and situation. Responsive and appropriate. Grossly nonfocal. EXTREMITIES: His incision is clean. No strike through. No erythema and he is neurovascularly intact in the left lower extremity. LABORATORY DATA: Hemoglobin and hematocrit 12.9 and 39.4. IMPRESSION: A 58-year-old male, postop day 1, left total knee arthroplasty, doing well. PLAN: Continue current care. Probable discharge to home tomorrow with home health. Job ID: [id number]
[2019-01-23] MEDS: Acetaminophen 325 MG TAB PO PRN (23:11)
[2019-01-24] MEDS: Melatonin 3 MG TAB PO PRN (00:33)
[2019-01-24] MEDS: Sodium Chloride 0.9% 1,000 ML IV SCH ×2 (00:49→10:54)
[2019-01-24 05:38] LABS: Hemoglobin 12.6 g/dL (14.0-18.0); Mean Corpuscular HGB CONC 33.8 g/dL (32.0-36.0); Mean Corpuscular Hemoglobin 29.5 pg (27.0-31.0); Mean Corpuscular Volume 87.4 fL (78.0-98.0); Mean Platelet Volume 7.8 fL (7.4-10.4); Platelet Count 189 thou/uL (130-400); RBC Distribution Width 12.1 % (11.5-14.5); Red Blood Cell (RBC) Count 4.27 mill/uL (4.70-6.10); White Blood Cell (WBC) Count 9.2 thou/uL (4.8-10.8)
[2019-01-24] MEDS: Ketorolac Tromethamine 30 MG/ML VIAL IVP SCH (06:19)
[2019-01-24 07:55] VITALS: TEMP 98.6
[2019-01-24] MEDS ORDERED: Famotidine 20 MG TAB PO SCH (09:00)
[2019-01-24] MEDS: Ferrous Gluconate 324 MG TAB PO SCH (09:10)
[2019-01-24] MEDS: Hydrochlorothiazide 25 MG TAB PO SCH (09:14)
[2019-01-24] MEDS: Aspirin 81 mg Enteric Coated Tablet PO SCH (09:15)
[2019-01-24] MEDS: Multivitamin W/ Minerals 1 TAB PO SCH (09:15)
[2019-01-24] MEDS: Amlodipine 10 MG TAB PO SCH (09:15)
[2019-01-24] MEDS: Senokot S 8.6-50 MG TAB PO SCH (09:15)
[2019-01-24 11:27] VITALS: BP 156/93
== END 2019-01-24 15:25 | disposition home or self-care (01) | DRG 470 ==
LOC: SJJU 01-22 05:24
PROVIDERS: ADMIT Orthopaedic Surgery; ATTEND Orthopaedic Surgery
PROC: 0SRD0J9 Replacement of Left Knee Joint with Synthetic Substitute, Cemented, Open Approach (ICD-10-PCS; principal; 2019-01-22)
DX: M17.12 Unilateral primary osteoarthritis, left knee (principal); Z68.41 Body mass index [BMI] 40.0-44.9, adult; I10 Essential (primary) hypertension; E78.5 Hyperlipidemia, unspecified; G47.30 Sleep apnea, unspecified; E66.01 Morbid (severe) obesity due to excess calories; Z99.89 Dependence on other enabling machines and devices; Z87.891 Personal history of nicotine dependence; Z79.82 Long term (current) use of aspirin; Z79.899 Other long term (current) drug therapy
CPT/HCPCS: 36415; 80048; 80053; 85025; 85027; 90471; 90686; C1713; C1776; G0008; J0131; J0670; J0690; J1885; J2001; J2250; J2405; J2704; J2795; J3010; J3490; S0020; S0028

== ENCOUNTER 2024-10-10 08:10 | Observation (INO) | payer BC ==
[2024-10-10] MEDS ORDERED: CEFAZOLIN 2 GM VIAL ONE (08:40)
[2024-10-10] MEDS ORDERED: VANCOMYCIN 2 GRAM/400 ML BAG ONE (08:40)
[2024-10-10] MEDS ORDERED: Tranexamic Acid 1,000 MG/10 ML VIAL ONE ×2 (08:40→12:21)
[2024-10-10] MEDS ORDERED: Ropivacaine 0.5% HCl/PF (150 MG/30 ML VIAL) ONE (09:04)
[2024-10-10] MEDS ORDERED: PROPOFOL 0 ML ONE (09:34)
[2024-10-10] MEDS ORDERED: Ondansetron PF 4 MG/2 ML Vial ONE (09:34)
[2024-10-10] MEDS ORDERED: Lidocaine 1% PF 5 ML VIAL ONE (09:34)
[2024-10-10] MEDS ORDERED: Ropivacaine 0.2% 550 ML 550 ML NERVE BLCK SCH (09:45)
[2024-10-10] MEDS ORDERED: Ondansetron PF 4 MG/2 ML Vial IVP PRN ×2 (09:45→12:06)
[2024-10-10] MEDS ORDERED: PROPOFOL 20 ML ONE ×2 (10:09→12:18)
[2024-10-10] MEDS ORDERED: Rocuronium Bromide 10 MG/ML (10ML VIAL) ONE ×2 (10:13→11:23)
[2024-10-10] MEDS ORDERED: SUGAMMADEX SODIUM 200 MG/2 ML VIAL ONE (11:51)
[2024-10-10] MEDS ORDERED: Acetaminophen 325 MG TAB PO PRN (12:06)
[2024-10-10] MEDS ORDERED: diphenhydrAMINE 25 MG CAP PO PRN (12:06)
[2024-10-10] MEDS ORDERED: fentaNYL PF 100 MCG/2 ML SYRINGE ONE ×2 (12:21→12:55)
[2024-10-10] MEDS ORDERED: HYDROmorphone 0.5 MG/0.5 ML SYRINGE ONE ×3 (12:42→13:31)
[2024-10-10 17:22] VITALS: BMI 39.9; BMI 40.1
[2024-10-10] MEDS: Ketorolac Tromethamine 30 MG (1 mL) VIAL IVP SCH ×2 (18:02→19:09)
[2024-10-10] MEDS: HYDROcodone/Acetaminophen 10/325 mg Tablet PO PRN (18:03)
[2024-10-10] MEDS: Senokot S 8.6-50 MG TAB PO SCH (21:14)
[2024-10-10] MEDS: Ferrous Gluconate 324 MG TAB PO SCH (21:14)
[2024-10-10] MEDS: Aspirin 81 mg Enteric Coated Tablet PO SCH (21:14)
[2024-10-10] MEDS: VANCOMYCIN 2 GRAM/400 ML BAG 2 GM in Premix 1 BAG IVPB SCH (21:15)
[2024-10-11 05:58] LABS: Hematocrit 39.1 % (42.0-52.0); Hemoglobin 12.7 g/dL (14.0-18.0); Mean Corpuscular Hemoglobin 27.5 pg (27.0-31.0); Mean Corpuscular Volume 84.8 fL (78.0-98.0); Platelet Count 185 10x3/uL (130-400); Red Blood Cell (RBC) Count 4.61 mill/uL (4.70-6.10); White Blood Cell (WBC) Count 9.41 10x3/uL (4.8-10.8)
[2024-10-11] MEDS: HYDROcodone/Acetaminophen 10/325 mg Tablet PO PRN (06:15)
[2024-10-11] MEDS: Multivitamin W/ Minerals 1 TAB PO SCH (08:44)
[2024-10-11] MEDS: Metoprolol Succinate XL 25 MG ER.TAB PO SCH (08:45)
[2024-10-11 11:00] VITALS: TEMP 98
[2024-10-11 14:12] VITALS: BP 175/89
== END 2024-10-11 16:34 | disposition home or self-care (01) ==
LOC: SDC 08:10 → SURG B 12:09
PROVIDERS: ADMIT Orthopaedic Surgery; ATTEND Orthopaedic Surgery
PROC: 0SRC0JZ Replacement of Right Knee Joint with Synthetic Substitute, Open Approach (ICD-10-PCS; principal; 2024-10-10)
DX: M17.11 Unilateral primary osteoarthritis, right knee (principal); I10 Essential (primary) hypertension; E78.5 Hyperlipidemia, unspecified; Z87.891 Personal history of nicotine dependence; Z96.652 Presence of left artificial knee joint; Z90.89 Acquired absence of other organs; Z98.890 Other specified postprocedural states; Z79.899 Other long term (current) drug therapy
CPT/HCPCS: 0055T; 27447; 36415; 85027; A4306; C1713; C1776; C1889; J0665; J1171; J1885; J2250; J2405; J2704; J2795; J3010; J3375